=== PATIENT | male | born 1990 | race Caucasian/White ===

== ENCOUNTER 2016-10-30 23:50 | Emergency (ER) | payer OTHER ==
[~2016-10-30] VITALS: Ht 180.3 cm; Wt 90.9 kg
[2016-10-30 23:55] VITALS: Ht 180.3 cm; Wt 90.9 kg
--- NOTE | 2016-10-31 01:15 | ERD ---
ER Documentation Chief Complaint Date/Time DATE: 10/31/16 TIME: 01:12 Chief Complaint c/o pain on splinted left lower leg, hx of left ankle fx 3 days ago. HPI 26-year-old male presents here in emergency department for complaints of left ankle pain, patient was diagnosed to have a left ankle fracture 3 days ago, patient had a splint on, feels that the splint is so tight and is more swollen, notice the bruising to be yellowish, and some dark coloration in the left ankle , patient was worried and wants this to be checked. Patient denies any reinjury. Patient has not been bearing weight on affected area, was using the splint, and crutches as prescribed. Patient was prescribed ibuprofen but did not take this for pain. Patient describes the pain as throbbing pain, 6/10 scale , worst on movement. Patient denies any numbness or tingling. Patient has not seen park services specialist yet. ROS All systems reviewed and are negative except as per history of present illness. Medications Home Meds Reported Medications [none] Unknown Strength No Conflict Check 10/31/16 Allergies Allergies: Coded Allergies: No Known Drug Allergy (Verified Allergy, Unknown, 10/30/16) PMhx/Soc Medical and Surgical Hx: pt denies Medical Hx History of Surgery: Yes (LEFT ARM) Anesthesia Reaction: No Hx Alcohol Use: Yes Hx Substance Use: No Hx Tobacco Use: No Smoking Status: Never smoker FmHx Family History: No coronary disease, No diabetes, No other Physical Exam Vitals Vital Signs Date Time Temp Pulse Resp B/P Pulse Ox O2 Delivery O2 Flow Rate FiO2 10/30/16 23:55 98.1 92 20 131/80 97 Physical Exam GENERAL: The patient is well developed and appropriate for usual state of health, in no apparent distress. CHEST: Clear to auscultation bilaterally. There are no rales, wheezes or rhonchi. HEART: Regular rate and rhythm. No murmurs, clicks, rubs or gallops. No S3 or S4. ABDOMEN: Soft, nontender and nondistended. Good bowel sounds. No rebound or guarding. No gross peritonitis. No gross organomegaly or masses. No Fu sign or McBurney point tenderness. BACK: No midline or flank tenderness. EXTREMITIES: Noted tenderness on palpation on the lateral malleolus of the left ankle, with swelling and mild deformity noted, ecchymosis is noted. Unable to do full range of motion because of pain and swelling. Equal pulses bilaterally. Full range of motion of other joints of the body. Grossly neurovascularly intact. NEURO: Alert and oriented. Cranial nerves 2-12 intact. Motor strength in all 4 extremities with 5/5 strength. Sensation grossly intact. Normal speech and gait. SKIN: There is no apparent rash or petechia. The skin is warm and dry. HEMATOLOGIC AND LYMPHATIC: There is no evidence of excessive bruising or lymphedema. No gross cervical, axillary, or inguinal lymphadenopathy. Results 24 hrs After receiving patients xray report, a posterior left ankle splint was applied on the patients left ankle. After application of the splint, patient has intact sensation and circulation on distal area of the affected joint. Patient does not complain of numbness or tingling after application of the splint. Patient tolerated procedure well. Patient already has crutches and was advised to use. Procedures/MDM Medical Decision Making: Patient's pain is most likely consistent with a contusion or a sprain. There is no suspicion for neurovascular compromise. Patient has intact sensation and circulation of the affected extremity. There is low suspicion for septic arthritis. Patient does not have any fever. Radiology exams of the affected area does not show any fracture or dislocation. Disposition: Home. Patient is given prescription for tramadol for severe pain, continue ibuprofen for mild to moderate pain. Patient was advised to elevate the affected area and apply ice on affected area. Patient was advised that if symptoms are worse, numbness, tingling, high fever, unable to move joint, worsening symptoms, to return to emergency department immediately. Otherwise, patient is advised to follow up with the primary care doctor in 5-7 days for reevaluation of symptoms. Repeat x-rays in 1 week if necessary if pain continues to persist and worsening. Departure Diagnosis: Primary Impression: Ankle pain, left Chronicity: acute Qualified Code: M25.572 - Acute left ankle pain Condition: Stable Patient Instructions: Sprain, Ankle, With X-Ray Additional Instructions: Patient is given prescription for tramadol for severe pain, continue ibuprofen for mild to moderate pain. Patient was advised to elevate the affected area and apply ice on affected area. Patient was advised that if symptoms are worse, numbness, tingling, high fever, unable to move joint, worsening symptoms, to return to emergency department immediately. Otherwise, patient is advised to follow up with the primary care doctor in 5-7 days for reevaluation of symptoms. Repeat x-rays in 1 week if necessary if pain continues to persist and worsening. CHRISTINA WING NP Oct 31, 2016 01:15
--- NOTE | 2016-10-31 01:55 | RADRPT ---
PROCEDURE: XR Ankle. CLINICAL INDICATION: Ankle pain. TECHNIQUE: AP, lateral and oblique views of the left ankle were performed. COMPARISON: There are no similar studies submitted for comparison. FINDINGS: There is normal bone mineralization.There is no acute fracture or dislocation.The ankle mortise is i ntact.No osseous lesion is identified.There is no soft tissue swelling. IMPRESSION: No acute fracture or dislocation. RPTAT: HIKT .Woo Rebolledo MD, MD Date Time Electronically viewed and signed by .Woo Rebolledo MD, on 10/31/2016 01:54 .T/
[2016-10-31] MEDS ORDERED: TRAM50TA2 PO (02:08)
== END 2016-10-31 02:58 | disposition home or self-care (01) ==
LOC: FTE 23:50
DX: M25.572 Pain in left ankle and joints of left foot (principal)
CPT/HCPCS: 29515; 73610; Z7502